=== PATIENT | female | born 1990 | race Caucasian/White ===

== ENCOUNTER 2017-01-07 05:45 | Inpatient (IN) | payer BC ==
[2017-01-07] MEDS ORDERED: OXYTOCIN 10 UNIT/ML 1 ML VIAL IM PRN (06:13)
[2017-01-07] MEDS ORDERED: METHYLERGONOVINE 0.2 MG/ML 1 ML AMP IM PRN (06:13)
[2017-01-07] MEDS ORDERED: TERBUTALINE 1 MG/ML VIAL SQ PRN (06:13)
[2017-01-07] MEDS ORDERED: LIDOCAINE 1% (PF) 10 MG/ML (30 ML SDV) SQ PRN (06:13)
[2017-01-07] MEDS ORDERED: CARBOPROST TROMETHAMINE 250 MCG/ML 1 ML AMP IM PRN (06:13)
[2017-01-07] MEDS ORDERED: OXYTOCIN 30 UNITS/500 ML NS 30 UNIT in SALINE 1 500ML.BAG IV SCH (06:15)
[2017-01-07 06:52] VITALS: BMI 39.1
[2017-01-07 07:28] LABS: Basophils # (A) 0.1 k/uL (0-0.2); Basophils % (A) 0 %; CH 31.9; CHCM 34.9; Eosinophils # (A) 0.1 k/uL (0-0.7); Eosinophils % (A) 1 %; HCT 43.7 % (34.0-46.0); HDW 2.46; Luc # (Auto) 0.23; Luc % (Auto) 1; Lymphocytes # (A) 1.4 k/uL (1.0-4.8); Lymphocytes % (A) 8 %; MCH 31.6 pg (25.0-35.0); MCHC 34.4 g/dL (31.0-37.0); MCV 91.9 fL (80.0-100.0); Monocytes # (A) 0.6 k/uL (0-1.0); Monocytes % (A) 3 %; Neutrophils % (A) 87 %; RBC 4.75 m/uL (3.80-5.40); RDW 13.7 % (11.5-15.5); WBC 18.4 k/uL (3.8-10.6); WBC (Perox) 18.46
[2017-01-07] MEDS ORDERED: BUTORPHANOL 1 MG/ML 1 ML VIAL IV PRN (07:37)
[2017-01-07] MEDS: LACTATED RINGERS 1,000 ML IV SCH ×4 (07:41→17:01)
[2017-01-07 07:46] LABS: ALT 44 U/L (9-52); AST 28 U/L (14-36); Blood Urea Nitrogen 9 mg/dL (7-17); LDH 541 U/L (313-618); Non-African American GFR(MDRD) >60 (>60 ml/min/1.73 sqM); Uric Acid 5.3 mg/dL (3.7-7.4)
[2017-01-07] MEDS ORDERED: BUPIVACAINE (PF) 0.25% 30 ML VIAL ONE (09:25)
[2017-01-07] MEDS ORDERED: SODIUM CHLORIDE 0.9% 100 ML BAG ONE (09:25)
[2017-01-07] MEDS ORDERED: fentaNYL (PF) 50 MCG/ML 5 ML AMP ONE (09:25)
[2017-01-07] MEDS ORDERED: BUPIVACAINE (PF) 0.25% 25 ML, fentaNYL (PF) 200 MCG in SODIUM CHLORIDE 0.9% 71 ML EPIDURAL ONE (09:45)
--- NOTE | 2017-01-07 10:04 | P.HPOB ---
History of Present Illness H&P Date: 01/07/17 This is a 26-year-old 1 para 0 woman with an estimated due date of 01/01 who presents at 40-5/7 weeks gestation with spontaneous rupture of membranes at approximately 4:45 AM. She did have onset of irregular but painful uterine contractions following this. On admission to labor and delivery triage she was found to have positive rupture of membranes with light meconium staining of the amniotic fluid. She was 2 cm dilated and 80% effaced and the infant in the vertex position. She was therefore admitted. Her has been on relatively uncomplicated. She does have hypothyroidism and is Rh-. She takes Synthroid for hypothyroidism. Laboratory data: Blood type O-, antibody screen negative, rubella immune, VDRL nonreactive, hepatitis B surface antigen negative, HIV negative, group B strep negative. Gestational diabetes screening within normal limits. Past Medical History Past Medical History: Hypertension Additional Past Medical History / Comment(s): Hypothyroid History of Any Multi-Drug Resistant Organisms: None Reported Past Surgical History: No Surgical Hx Reported Past Anesthesia/Blood Transfusion Reactions: No Reported Reaction Past Psychological History: No Psychological Hx Reported Smoking Status: Never smoker Medications and Allergies Home Medications Medication Instructions Recorded Confirmed Type Levothyroxine Sodium [Synthroid] 75 mcg PO DAILY 12/31/16 01/07/17 History No.77/Iron Asp Gly/FA 1 each PO DAILY 12/31/16 01/07/17 History [Prenate Star Tablet] Allergies Allergy/AdvReac Type Severity Reaction Status Date / Time Penicillins AdvReac Unknown Verified 01/07/17 08:38 Exam - Vital Signs Vital signs: Vital Signs Temp Pulse Resp BP 01/07/17 06:04 96.7 F L 94 18 150/96 Intake and Output 01/06/17 01/07/17 01/07/17 22:59 06:59 14:59 Other: Weight 103.419 kg Upon my initial evaluation she is comfortable with the recent epidural placement. Targeted physical exam is performed. The abdomen is gravid, soft and nontender. There is no right upper abdominal pain. On pelvic examination the cervix is 3 cm dilated, 90% effaced, vertex in the -1 station and occiput transverse. The she has 1+ bilateral lower extremity edema. heart tones are reassuring by external monitoring and she is jeremy every 2-4 minutes. Results Result Diagrams: 01/07/17 07:10 01/07/17 07:10 Abnormal Lab Results - Last 24 Hours (Table) 01/07/17 Range/Units 07:10 WBC 18.4 H (3.8-10.6) k/uL Neutrophils # 16.0 H (1.3-7.7) k/uL Assessment and Plan (1) Meconium in amniotic fluid Status: Acute (2) Spontaneous onset of labor Status: Acute (3) Spontaneous rupture of membranes Status: Acute (4) Rh negative, maternal Status: Acute (5) Hypothyroid Status: Acute Plan: This is a 26-year-old 1 para 0 woman who presents at 40-5/7 weeks gestation with spontaneous rupture of membranes, light meconium-stained fluid. Her initial blood pressures were elevated however they have come down into the normal range. Laboratory data for possible preeclampsia was done, reviewed and is normal. status is currently reassuring by external monitoring. She is group B strep negative and Rh-. Pitocin augmentation as necessary based on labor pattern.
[2017-01-07] MEDS ORDERED: diphenhydrAMINE 50 MG CAP PO PRN (20:29)
[2017-01-07] MEDS ORDERED: BENZOCAINE/MENTHOL SPRAY 1 GM/SPRAY AEROSOL TOPICAL PRN (20:29)
[2017-01-07] MEDS ORDERED: ACETAMINOPHEN TAB 325 MG TAB PO PRN (20:29)
[2017-01-07] MEDS ORDERED: HYDROCORTISONE 2.5% RECTAL CREAM 30 GM TUBE RECTAL PRN (20:29)
[2017-01-07] MEDS ORDERED: Acetaminophen-Codeine 300-30mg TAB PO PRN (20:29)
[2017-01-07] MEDS ORDERED: diphenhydrAMINE 50 MG/ML 1 ML VIAL IVP PRN ×2 (20:29)
[2017-01-07] MEDS ORDERED: diphenhydrAMINE 25 MG CAP PO PRN (20:29)
[2017-01-07] MEDS ORDERED: ZOLPIDEM 5 MG TAB PO PRN (20:29)
[2017-01-07] MEDS ORDERED: WITCH HAZEL 1 EACH MED..PAD TOPICAL PRN (20:29)
[2017-01-07] MEDS ORDERED: LANOLIN CREAM 5 GM TUBE TOPICAL PRN (20:29)
[2017-01-07] MEDS ORDERED: SIMETHICONE 80 MG CHEWABLE PO PRN (20:29)
--- NOTE | 2017-01-07 20:29 | P.PROBDLV ---
Vaginal Delivery Note - . Vaginal Delivery Note: Findings: Female in the left occiput anterior position with nuchal cord 1. Apgars of 9 at 1 minute and 9 at 5 minutes weighing 7 lbs. 15 oz., 3605 g. Second-degree perineal laceration. Terminal meconium. Calcified, meconium- stained placenta. EBL 300 mL's. Delivery summary: This is a 1 para 0 who is admitted at 40-5/7 weeks gestation with spontaneous rupture of membranes at 445 in active labor. On admission she was 2 cm dilated. She progressed to 3 cm and did receive an epidural anesthetic. After the epidural she received Pitocin augmentation. She reached complete cervical dilation by 1930. She commenced pushing with excellent maternal effort. With she was repositioned, prepped and draped in the dorsal modified lithotomy position. The SALES PROMOTION MANAGER was present in the room for findings of meconium-stained fluid. heart tones were reassuring. With additional maternal effort the head delivered from the left occiput anterior position. The nose and mouth were bulb suctioned on the perineum. A nuchal cord 1 was easily reduced. The anterior followed by the posterior shoulders were delivered without difficulty and the rest the was delivered onto the field. The infant was immediately vigorous and crying. The nose and mouth were further bulb suctioned. The infant was placed on the maternal abdomen with the cord was clamped and cut. Apgars were 9 at 1 minute and 9 at 5 minutes and weight was 7 lbs. 15 oz. second-degree perineal laceration was noted and was infused with lidocaine. This was repaired with 3- 0 Vicryl suture. An intact, three-vessel cord placenta that was meconium- stained and calcified was expressed after an approximately 13 minute third stage of labor. There was initial uterine atony that was managed with vigorous bimanual massage, Pitocin and IM Methergine. The uterus then contracted down firmly with no additional bleeding. The vagina was inspected and no further lacerations were noted. Both mother and infant were doing well post delivery in the room.
[2017-01-07] MEDS: IBUPROFEN 600 MG TAB PO PRN (20:49)
[2017-01-08] MEDS: SENNOSIDES-DOCUSATE SODIUM 1 EACH TAB PO SCH ×2 (08:17→20:05)
[2017-01-08] MEDS: IBUPROFEN 600 MG TAB PO PRN ×3 (08:17→19:34)
--- NOTE | 2017-01-08 10:37 | P.PNOBGVD ---
Subjective - Subjective Principal diagnosis: day 1 Interval history: Minimal lochia. Patient reports: Reports appetite normal, Reports voiding normally, Reports pain well controlled, Reports ambulating normally : doing well, nursing well Objective - Latest Vital Signs Latest vital signs: Vital Signs Temp Pulse Resp BP 01/08/17 08:00 98.7 F 100 20 130/79 01/08/17 04:00 98.1 F 77 16 145/84 01/08/17 00:00 98.1 F 84 16 137/75 01/07/17 22:30 97.3 F L 117 H 16 151/82 01/07/17 22:00 118 H 16 140/76 01/07/17 21:30 120 H 16 149/81 01/07/17 21:15 121 H 16 141/75 01/07/17 21:00 114 H 16 133/68 01/07/17 20:45 121 H 16 121/67 01/07/17 20:30 99.9 F H 136 H 16 131/70 Intake and Output 01/07/17 01/08/17 01/08/17 22:59 06:59 14:59 Intake Total 10.3 240 Balance 10.3 240 Intake: Intake, IV Titration 10.3 Amount Oxytocin 30 Units/500 ml 10.3 Ns 30 unit In Saline 1 500ml.bag @ 1 MILLIUNIT/ MIN 1 mls/hr IV .Q24H EVAN Rx#:[id number] Oral 240 Other: # Voids 1 1 - Exam Extremities: Present: edema Abdomen: Present: normal appearance, soft Uterus: Present: normal, firm Assessment and Plan (1) Meconium in amniotic fluid Current Visit: Yes Status: Acute Code(s): P96.83 - MECONIUM STAINING SNOMED Code(s): 8209118 (2) Spontaneous onset of labor Current Visit: Yes Status: Acute Code(s): VCF9681 - SNOMED Code(s): 92494236 (3) Spontaneous rupture of membranes Current Visit: Yes Status: Acute Code(s): CAW6970 - SNOMED Code(s): 867711001 (4) Rh negative, maternal Current Visit: Yes Status: Acute Code(s): O09.899 - SUPERVISION OF OTHER HIGH RISK PREGNANCIES, UNSP TRIMESTER SNOMED Code(s): 881198839 (5) Hypothyroid Current Visit: Yes Status: Acute Code(s): E03.9 - HYPOTHYROIDISM, UNSPECIFIED SNOMED Code(s): 87217387 (6) Normal spontaneous vaginal delivery Narrative/Plan: day #1 status post normal spontaneous vaginal delivery. Recovering well. Anticipate discharge home tomorrow. Current Visit: Yes Status: Acute Code(s): O80 - ENCOUNTER FOR FULL-TERM UNCOMPLICATED DELIVERY SNOMED Code(s): 74238415 (7) Nuchal cord Current Visit: Yes Status: Acute Code(s): O69.82X0 - LABOR AND DEL COMP BY [facility] CORD ENTANGLE, W/O COMPRSN, UNSP SNOMED Code(s): 081517489 (8) Perineal laceration with delivery, second degree Current Visit: Yes Status: Acute Code(s): O70.1 - SECOND DEGREE PERINEAL LACERATION DURING DELIVERY SNOMED Code(s): 9030027 (9) Post-dates Current Visit: Yes Status: Acute Code(s): O48.0 - POST-TERM SNOMED Code(s): 37640377
[2017-01-08] MEDS: SENNA LEAF EXTRACT SYRUP 528 MG/15 ML CUP PO SCH ×2 (14:03→20:05)
[2017-01-08] MEDS ORDERED: Rhogam IMMUNE GLOBULIN 1,500 UNIT/1 ML IM ONE (16:49)
[2017-01-09] MEDS: IBUPROFEN 600 MG TAB PO PRN ×2 (03:23→12:06)
[2017-01-09] MEDS: SENNA LEAF EXTRACT SYRUP 528 MG/15 ML CUP PO SCH (08:30)
[2017-01-09] MEDS: SENNOSIDES-DOCUSATE SODIUM 1 EACH TAB PO SCH (08:30)
[2017-01-09 08:43] VITALS: BP 126/75; PULSE 81; RESP 17; TEMP 97.3
--- NOTE | 2017-01-09 13:31 | P.DS ---
Providers Date of admission: 01/07/17 05:45 Expected date of discharge: 01/09/17 Attending physician: Renetta Kelly Primary care physician: Stated None Hospital Course: This is a 26-year-old white female 1 para 0 EDC 01/01/2017 at 40-5/7 weeks' gestation. was essentially unremarkable, group B strep cultures negative, blood type O-, rubella status immune. Please see dictated history and physical for details. Patient was admitted, went through active labor with meconium-stained fluid. Requested and received an epidural. She went on to deliver a liveborn female with scores of 9 and 9 at one and 5 minutes respectively. weighed 7 lbs. 15 oz. or 11/21/2004 grams. Estimated blood loss 300 mL, please see dictated delivery note for details. Patient has done well in the period. is also doing well and has been discharged home. Patient is voiding, ambulating, passing flatus and breast-feeding without difficulty. Vital signs are stable and she has remained afebrile. Fundus is firm and in the midline, symmetric and 18 week size. Extremities are negative for edema. Breasts are not engorged. Patient is therefore being discharged home in very good condition. She will follow-up with me in the office in 6 weeks. I have reminded her no intercourse , tampons or douching. She and her are contemplating her options for contraception and we will discuss this further in the office. Infant will follow-up with biofuels plant manager as recommended. [id number] Motrin products, ibuprofen pills, 200 mg, 3 every 6 hours as needed for pain. Continue vitamin daily. I have given her prescription for a double electric breast pump. Issues, difficulties or concerns. Patient Condition at Discharge: Good Plan - Discharge Summary Discharge Medication List Levothyroxine Sodium [Synthroid] 75 mcg PO DAILY 12/31/16 [History] No.77/Iron Asp Gly/FA [Prenate Star Tablet] 1 each PO DAILY 12/31/16 [ History] Follow up Appointment(s)/Referral(s): Renetta Kelly MD [STAFF PHYSICIAN] - 6 Weeks Discharge Disposition: HOME SELF-CARE
== END 2017-01-09 14:00 | disposition home or self-care (01) | DRG 774 ==
LOC: 4FBP 05:45
PROVIDERS: ADMIT Obstetrics & Gynecology; ATTEND Obstetrics & Gynecology
PROC: 10E0XZZ Delivery of Products of Conception, External Approach (ICD-10-PCS; principal; 2017-01-07)
PROC: 00HU33Z Insertion of Infusion Device into Spinal Canal, Percutaneous Approach (ICD-10-PCS; 2017-01-07)
PROC: 3E0R3CZ (ICD-10-PCS; 2017-01-07)
PROC: 3E0234Z Introduction of Serum, Toxoid and Vaccine into Muscle, Percutaneous Approach (ICD-10-PCS; 2017-01-08)
DX: O77.0 Labor and delivery complicated by meconium in amniotic fluid (principal); O10.02 Pre-existing essential hypertension complicating childbirth; Z68.39 Body mass index [BMI] 39.0-39.9, adult; E03.9 Hypothyroidism, unspecified; O69.81X0 Labor and delivery complicated by cord around neck, without compression, not applicable or unspecified; O62.2 Other uterine inertia; O26.893 Other specified pregnancy related conditions, third trimester; O70.1 Second degree perineal laceration during delivery; Z67.41 Type O blood, Rh negative; Z37.0 Single live birth; Z3A.40 40 weeks gestation of pregnancy; O99.284 Endocrine, nutritional and metabolic diseases complicating childbirth; O48.0 Post-term pregnancy; O99.213 Obesity complicating pregnancy, third trimester; Z79.899 Other long term (current) drug therapy
CPT/HCPCS: 82565; 83615; 84450; 84460; 84520; 84550; 85025; 88307

== ENCOUNTER 2019-11-19 06:00 | Inpatient (IN) | payer OTHER ==
[2019-11-19] MEDS ORDERED: CARBOPROST TROMETHAMINE 250 MCG/ML 1 ML AMP IM PRN (06:14)
[2019-11-19] MEDS ORDERED: OXYTOCIN 10 UNIT/ML 1 ML VIAL IM PRN (06:14)
[2019-11-19] MEDS ORDERED: METHYLERGONOVINE 0.2 MG/ML 1 ML AMP IM PRN (06:14)
[2019-11-19] MEDS ORDERED: TERBUTALINE 1 MG/ML VIAL SQ PRN (06:14)
[2019-11-19] MEDS ORDERED: LIDOCAINE 0.5% (PF) 5 MG/ML (50 ML SDV) SQ PRN (06:14)
[2019-11-19] MEDS ORDERED: OXYTOCIN 30 UNITS/500 ML NS 30 UNIT in SALINE 1 500ML.BAG IV SCH (06:15)
[2019-11-19] MEDS ORDERED: LACTATED RINGERS 1,000 ML IV SCH (06:15)
[2019-11-19] MEDS: LACTATED RINGERS 1,000 ML IV SCH ×2 (06:15→16:07)
[2019-11-19 06:25] LABS: Basophils % (A) 0 %; Eosinophils # (A) 0.3 k/uL (0-0.7); Eosinophils % (A) 2 %; HCT 41.9 % (34.0-46.0); HGB 13.9 gm/dL (11.4-16.0); Lymphocytes % (A) 15 %; MCH 30.4 pg (25.0-35.0); MCHC 33.1 g/dL (31.0-37.0); MCV 91.9 fL (80.0-100.0); Mean Platelet Volume 8.5; Monocytes # (A) 0.7 k/uL (0-1.0); Monocytes % (A) 5 %; Neutrophils # (A) 10.3 k/uL (1.3-7.7); Neutrophils % (A) 76 %; Platelet Count 248 k/uL (150-450); RBC 4.56 m/uL (3.80-5.40); RDW 12.9 % (11.5-15.5); WBC 13.5 k/uL (3.8-10.6)
--- NOTE | 2019-11-19 08:15 | P.HPOB ---
History of Present Illness H&P Date: 11/19/19 Chief Complaint: Here for induction for increased proteinuria This is a 29-year-old white female 2 para 1001 EDC 11/26/2019 at 39 weeks gestation. Patient presents for induction for increased proteinuria as noted by 24-hour urines. Fetus has been active throughout the . She denies vaginal bleeding or fluid leakage. Family history significant for asthma, atrial fibrillation, diabetes, and lung cancer. Social history patient is , she is never been a smoker, she denies alcohol or drug use. Obstetric history vaginal delivery 7 lbs. 15 oz. female infant 2016. Past surgical history wisdom teeth extracted in the past. Past medical history hypothyroidism. Current medications Synthroid 75 MCG's daily, vitamin daily. history initial 24 hour urine revealed almost 600 mg of protein, followed every trimester. Blood type is O-, rubella status immune. VDRL testing, urine culture, hepatitis B surface antigen, HIV testing, thyroid function studies, group B strep cultures all negative. One-hour Glucola 113. On exam she is a pleasant white female who is 5 foot 4 inches, 220 pounds, initial blood pressure 133/86, pulse 108. Gen. physical exam is within normal limits. Extremities reveal trace edema. Reflexes are normal. Cervix is 1-2 cm dilated, soft, 50% effaced, anterior, -2 station, vertex. Artificial amniorrhe xis reveals clear fluid. heart rate is consistent with reactive NST. Uterine contractions are mild, occurring approximately 6 minutes apart. Impression: 39 week intrauterine , chronic proteinuria, history of PIH. Here for induction, all signs reassuring. Plan: Continue close maternal and surveillance. Oxytocin per hospital protocol. Analgesic options have been reviewed with the patient. Anticipate normal spontaneous vaginal delivery. Review of Systems Constitutional: Reports as per HPI Past Medical History Past Medical History: Hypertension Additional Past Medical History / Comment(s): Hypothyroid History of Any Multi-Drug Resistant Organisms: None Reported Past Surgical History: No Surgical Hx Reported Past Anesthesia/Blood Transfusion Reactions: No Reported Reaction Past Psychological History: No Psychological Hx Reported Smoking Status: Never smoker Past Alcohol Use History: None Reported Past Drug Use History: None Reported - Past Family History Mother Family Medical History: Asthma Medications and Allergies Home Medications Medication Instructions Recorded Confirmed Type Levothyroxine Sodium [Synthroid] 75 mcg PO DAILY 12/31/16 11/19/19 History No.77/Iron Asp Gly/FA 1 each PO DAILY 12/31/16 11/19/19 History [Prenate Star Tablet] Allergies Allergy/AdvReac Type Severity Reaction Status Date / Time Penicillins AdvReac Unknown Verified 11/19/19 06:05 Exam Vital Signs Temp Pulse Resp BP Pulse Ox 11/19/19 06:10 96.5 F L 108 H 16 133/86 98 Intake and Output 11/18/19 11/19/19 11/19/19 22:59 06:59 14:59 Other: Weight 99.79 kg See dictation under HPI please Results Result Diagrams: 11/19/19 06:15 Abnormal Lab Results - Last 24 Hours (Table) 11/19/19 Range/Units 06:15 WBC 13.5 H (3.8-10.6) k/uL Neutrophils # 10.3 H (1.3-7.7) k/uL Assessment and Plan Assessment: 39 week intrauterine , elevated proteinuria with history of PIH. All signs reassuring. Plan: Oxytocin per hospital protocol. Close maternal and surveillance. Antici melendez normal spontaneous vaginal delivery. Time with Patient: Less than 30
[2019-11-19] MEDS ORDERED: fentaNYL (PF) 50 MCG/ML 5 ML AMP ONE (11:59)
[2019-11-19] MEDS ORDERED: SODIUM CHLORIDE 0.9% 100 ML BAG ONE (11:59)
[2019-11-19] MEDS ORDERED: ROPIVACAINE 5MG/ML 20ML VIAL ONE (11:59)
[2019-11-19] MEDS ORDERED: ROPIVACAINE 100 MG, fentaNYL (PF) 200 MCG in SODIUM CHLORIDE 0.9% 76 ML EPIDURAL ONE (13:09)
[2019-11-19] MEDS ORDERED: WITCH HAZEL 1 EACH MED..PAD TOPICAL PRN (17:53)
[2019-11-19] MEDS ORDERED: diphenhydrAMINE 50 MG/ML 1 ML VIAL IVP PRN ×2 (17:53)
[2019-11-19] MEDS ORDERED: HYDROCORTISONE 2.5% RECTAL CREAM 30 GM TUBE RECTAL PRN (17:53)
[2019-11-19] MEDS ORDERED: SIMETHICONE 80 MG CHEWABLE PO PRN (17:53)
[2019-11-19] MEDS ORDERED: ZOLPIDEM 5 MG TAB PO PRN (17:53)
[2019-11-19] MEDS ORDERED: diphenhydrAMINE 25 MG CAP PO PRN (17:53)
[2019-11-19] MEDS ORDERED: diphenhydrAMINE 50 MG CAP PO PRN (17:53)
[2019-11-19] MEDS ORDERED: LANOLIN CREAM 5 GM TUBE TOPICAL PRN (17:53)
[2019-11-19] MEDS ORDERED: diphenhydrAMINE ELIXIR 25 MG/10 ML CUP PO PRN (17:53)
[2019-11-19] MEDS ORDERED: ACETAMINOPHEN TAB 325 MG TAB PO PRN (17:53)
[2019-11-19] MEDS ORDERED: BENZOCAINE/MENTHOL SPRAY 1 GM/SPRAY AEROSOL TOPICAL PRN (17:53)
--- NOTE | 2019-11-19 17:53 | P.PROBDLV ---
Vaginal Delivery Note - . Vaginal Delivery Note: This is a 29-year-old white female 2 para 1001 EDC 11/26/2019 at 39 weeks gestation. Patient presented earlier this morning for Induction of labor, for elevated proteinuria noted on multiple 24-hour urines specimens. is otherwise unremarkable, blood pressure on admission 133/86. Blood type O-, rubella status immune, group B strep cultures negative. Please see dictated history and physical for details. Patient progressed well through the first stage of labor. Epidural was requested and placed per her request. She progressed well and became completely dilated at 1728 hrs. She began the second stage of labor at that time. Perineal body was prepped and draped in usual sterile fashion. With excellent maternal expulsive efforts the head quickly delivered occiput anterior and restituted accordingly. There was a nuchal cord 1 that was reduced. The left or anterior shoulder was gently and easily delivered from underneath the pubic symphysis at which time the oropharynx, nasopharynx, and external nares were all bulb suctioned on the perineal body. The patient officially delivered a liveborn male at 1738 hrs. Umbilical cord was doubly clamped and ligated, he was handed to waiting nurses for evaluation where scores of 8 and 9 at one and 5 minutes respectively were given. Placenta delivered spontaneously, it was inspected and noted to be intact with trivascular cord at 1741 hrs. Uterus is then massaged. Careful inspection of the cervix, vagina, perineum, periurethral areas reveals no lacerations and no defects. Estimated blood loss 250 mL's. Fundus is firm and in the midline, symmetric and 18 week size upon completion of delivery. Infant's weight was 7 lbs. 7 oz. or 3380 g. Patient and her are requesting circumcision further infant son.
[2019-11-19] MEDS ORDERED: OXYTOCIN 20 UNITS/1000 ML NS 1,000 ML IV SCH (18:00)
[2019-11-19] MEDS: SENNOSIDES-DOCUSATE SODIUM 1 EACH TAB PO SCH (21:03)
[2019-11-19] MEDS: IBUPROFEN 600 MG TAB PO PRN (22:08)
[2019-11-20] MEDS: IBUPROFEN 600 MG TAB PO PRN ×3 (04:54→21:29)
--- NOTE | 2019-11-20 08:31 | P.DS ---
Providers Date of admission: 11/19/19 06:00 Expected date of discharge: 11/20/19 Attending physician: Renetta Kelly Primary care physician: Marily Tyson - Discharge Diagnosis(es) (1) Term Current Visit: Yes Status: Acute (2) Proteinuria Current Visit: Yes Status: Acute (3) Normal spontaneous vaginal delivery Current Visit: No Status: Acute (4) Rh negative, maternal Current Visit: No Status: Acute Hospital Course: This pleasant 29-year-old 2 para 1 at 39-0/7 weeks with an estimated due date of 11/26/2019. Patient presented for induction secondary to increased proteinuria throughout the . Patient has a history of PIH in addition. Patient had otherwise uncomplicated care. For complete details on this patient please see the dictated history and physical. Patient was admitted to labor and delivery and Pitocin induction of labor was begun per hospital protocol. Patient made progress through first stage of labor eventually requesting an epidural. Epidural was placed without difficulty by the anesthesia department. She progressed to complete began pushing and had a normal spontaneous vaginal delivery of a viable male infant, weight of 7 lbs. 7 oz. at 1738. No lacerations were sustained during delivery. Patient's course has been uneventful. On this day #1 she is ambulating and voiding without difficulty. She is tolerating a regular diet without nausea or vomiting. She is breast-feeding without difficulty, her lochia is minimal. She denies concerns and would like discharge home at 24 hours. Patient Condition at Discharge: Good Plan - Discharge Summary New Discharge Prescriptions: No Action Levothyroxine Sodium [Synthroid] 75 mcg PO DAILY No.77/Iron Asp Gly/FA [Prenate Star Tablet] 1 each PO DAILY Discharge Medication List Levothyroxine Sodium [Synthroid] 75 mcg PO DAILY 12/31/16 [History] No.77/Iron Asp Gly/FA [Prenate Star Tablet] 1 each PO DAILY 12/31/16 [History] Follow up Appointment(s)/Referral(s): Renetta Kelly MD [STAFF PHYSICIAN] - 1 Week Patient Instructions/Handouts: Vaginal Delivery (DC), Vaginal Delivery (GEN) Discharge Disposition: HOME SELF-CARE
[2019-11-20] MEDS ORDERED: Rhogam IMMUNE GLOBULIN 1,500 UNIT/1 ML IM ONE (10:44)
[2019-11-20] MEDS: SENNOSIDES-DOCUSATE SODIUM 1 EACH TAB PO SCH ×2 (10:48→21:29)
[2019-11-21] MEDS: SENNOSIDES-DOCUSATE SODIUM 1 EACH TAB PO SCH (07:57)
[2019-11-21 09:42] VITALS: RESP 16
[2019-11-21] MEDS: IBUPROFEN 600 MG TAB PO PRN ×2 (10:33→17:00)
[2019-11-21 16:52] VITALS: BP 123/85; PULSE 63; TEMP 98
== END 2019-11-21 18:55 | disposition home or self-care (01) | DRG 807 ==
LOC: 4FBP 06:00
PROVIDERS: ADMIT Obstetrics & Gynecology; ATTEND Obstetrics & Gynecology
PROC: 00HU33Z Insertion of Infusion Device into Spinal Canal, Percutaneous Approach (ICD-10-PCS; principal; 2019-11-19)
PROC: 3E033VJ Introduction of Other Hormone into Peripheral Vein, Percutaneous Approach (ICD-10-PCS; principal; 2019-11-19)
PROC: 10E0XZZ Delivery of Products of Conception, External Approach (ICD-10-PCS; principal; 2019-11-19)
PROC: 3E0R3BZ Introduction of Anesthetic Agent into Spinal Canal, Percutaneous Approach (ICD-10-PCS; principal; 2019-11-19)
DX: O12.14 Gestational proteinuria, complicating childbirth (principal); Z37.0 Single live birth; O69.81X0 Labor and delivery complicated by cord around neck, without compression, not applicable or unspecified; O99.284 Endocrine, nutritional and metabolic diseases complicating childbirth; E03.9 Hypothyroidism, unspecified; Z3A.39 39 weeks gestation of pregnancy; Z79.890 Hormone replacement therapy; Z88.0 Allergy status to penicillin; Z87.59 Personal history of other complications of pregnancy, childbirth and the puerperium; Z80.1 Family history of malignant neoplasm of trachea, bronchus and lung; Z82.5 Family history of asthma and other chronic lower respiratory diseases; Z83.3 Family history of diabetes mellitus; Z82.49 Family history of ischemic heart disease and other diseases of the circulatory system
CPT/HCPCS: 85025; 85461; 86850; 86900; 86901

== ENCOUNTER 2020-08-10 06:24 | Day surgery (SDC) | payer OTHER ==
[2020-08-05 16:00] VITALS: BMI 32.8
[~2020-08-10 06:24] MED LIST: ACETAMINOPHEN TAB 500 MG TAB PO ONE; DEXAMETHASONE SOD PHOSPHATE 4 MG/ML 1 ML VIAL IV ONE; HEPARIN SODIUM,PORCINE 5,000 UNIT/ML 1 ML VIAL SQ ONE; HYDROmorphone 0.5 MG/0.5 ML SYRINGE IVP PRN; ONDANSETRON 4 MG/2 ML VIAL IVP ONE
[2020-08-10] MEDS: LACTATED RINGERS 1,000 ML IV SCH ×2 (06:47→09:35)
[2020-08-10] MEDS ORDERED: LIDOCAINE 1% (10MG/ML) FOR IV START INTRADERMA ONE (06:48)
[2020-08-10] MEDS ORDERED: SCOPOLAMINE 1.5MG/72HR PATCH TRANSDERM ONE (06:49)
[2020-08-10] MEDS ORDERED: NEOSTIGMINE 1 MG/ML 10 ML VIAL ONE (07:45)
[2020-08-10] MEDS ORDERED: ROCURONIUM 10 MG/ML (10 ML VIAL) IV ONE (07:45)
[2020-08-10] MEDS ORDERED: fentaNYL (PF) 50 MCG/ML 2 ML AMP ONE (07:45)
[2020-08-10] MEDS ORDERED: GLYCOPYRROLATE 0.2 MG/ML 2 ML VIAL ONE (07:45)
[2020-08-10] MEDS ORDERED: PROPOFOL 10 MG/ML 20 ML VIAL IV ONE (07:45)
[2020-08-10] MEDS ORDERED: MIDAZOLAM 2 MG/2 ML VIAL ONE (07:45)
[2020-08-10] MEDS ORDERED: SUCCINYLCHOLINE CHLORIDE 100 MG/5 ML SYR IV ONE (07:45)
[2020-08-10] MEDS ORDERED: KETOROLAC 15 MG/ML 1 ML VIAL ONE (07:45)
[2020-08-10] MEDS ORDERED: LIDOCAINE 1% INJ 10MG/ML (20 ML MDV) ONE (07:45)
[2020-08-10] MEDS ORDERED: HYDROmorphone (PF) 1 MG/ML ONE (07:45)
[2020-08-10] MEDS ORDERED: BUPIVACAINE (PF) 0.25% 30 ML VIAL SQ ONE (08:03)
[2020-08-10 08:37] VITALS: RESP 16; TEMP 97.7
--- NOTE | 2020-08-10 08:44 | P.OP ---
Date of Procedure: 08/10/20 Preoperative Diagnosis: Cholecystitis Cholelithiasis Postoperative Diagnosis: Cholecystitis Cholelithiasis Procedure(s) Performed: Laparoscopic cholecystectomy Anesthesia: BRENDAN Surgeon: Heber Schreiber Pathology: other (Gallbladder) Condition: stable Disposition: PACU Description of Procedure: The patient was placed on the operating table. The patient received a general endotracheal tube anesthesia. The patients abdomen was prepped and draped in the usual sterile fashion. Through an infraumbilical stab incision, the fascia of the anterior abdominal wall was grasped with a pair of Kochers and then the Veress needle was placed in the peritoneal cavity. Position of the Veress needle was confirmed with positive drop test. The abdomen was then insufflated. After adequate insufflation, the 10 mm trocar was placed in the peritoneal cavity. Following this the laparoscope was placed in the peritoneal cavity. The patient was placed in the head-up, right side up position and then a 5 mm trocar was placed in the right lateral and right subcostal position under direct visualization. A 8 mm trocar was placed in the epigastric position. The gallbladder was grasped in the fundus and infundibulum. Traction on the gallbladder was placed in the lateral and the cephalad positions. The triangle of Calot was visualized.. The cystic duct was bluntly dissected until the union of the cystic duct and common bile duct was seen. A critical view of safety was achieved. The cystic duct was then divided and sealed with the Harmonic scissors. A PDS Endoloop was then placed throughout the cystic duct stump. The cystic artery divided and sealed with the Harmonic scissors. The gallbladder was then removed from the liver bed using Harmonic scissors. The gallbladder was then extracted through the epigastric port site. Operative field was checked for any bleeding spots and Harmonic scissors was used to coagulate the liver bed. The abdomen was irrigated. The trocars were removed. The skin was closed using interrupted 3-0 Vicryl suture. Dermabond dressing were applied. The patient tolerated the procedure well.
[2020-08-10] MEDS ORDERED: ONDANSETRON 4 MG/2 ML VIAL IVP ONE (09:20)
[2020-08-10] MEDS ORDERED: ONDANSETRON 4 MG/2 ML VIAL ONE (09:22)
[2020-08-10 09:37] VITALS: BP 124/71; PULSE 51
== END 2020-08-10 10:07 | disposition home or self-care (01) ==
LOC: OR 06:24
PROVIDERS: ATTEND Surgery
DX: K81.2 Acute cholecystitis with chronic cholecystitis (principal); E07.9 Disorder of thyroid, unspecified; Z88.0 Allergy status to penicillin; Z79.3 Long term (current) use of hormonal contraceptives; Z79.890 Hormone replacement therapy; Z98.890 Other specified postprocedural states; Z84.89 Family history of other specified conditions
CPT/HCPCS: 81025; 88304; 47562; J2250; J1644; J1100; J2710; J0690; J2405; J2001; J3010; J1170; J1885; J0330; J2704

== ENCOUNTER 2023-03-29 16:57 | Inpatient (IN) | payer BC ==
[2023-03-29] MEDS ORDERED: miSOPROStoL 200 MCG TAB PO PRN (17:13)
[2023-03-29] MEDS ORDERED: TRANEXAMIC 1,000 MG/100ML-NACL 1,000 MG in EMPTY BAG 1 BAG IV PRN (17:13)
[2023-03-29] MEDS ORDERED: CARBOPROST TROMETHAMINE 250 MCG/ML 1 ML AMP IM PRN (17:13)
[2023-03-29] MEDS ORDERED: TERBUTALINE 1 MG/ML VIAL SQ PRN (17:13)
[2023-03-29] MEDS ORDERED: LIDOCAINE 0.5% (PF) 5 MG/ML (50 ML SDV) SQ PRN (17:13)
[2023-03-29] MEDS ORDERED: METHYLERGONOVINE 0.2 MG/ML 1 ML AMP IM PRN (17:13)
[2023-03-29] MEDS ORDERED: OXYTOCIN 10 UNIT/ML 1 ML VIAL IM PRN (17:13)
[2023-03-29] MEDS ORDERED: DINOPROSTONE 10 MG INSERT.ER VAGINAL ONE (17:41)
[2023-03-29 17:45] LABS: Basophils % (A) 0 %; Eosinophils # (A) 0.1 k/uL (0-0.7); Eosinophils % (A) 1 %; HCT 38.5 % (34.0-46.0); HGB 13.3 gm/dL (11.4-16.0); Lymphocytes # (A) 1.6 k/uL (1.0-4.8); Lymphocytes % (A) 13 %; MCH 31.3 pg (25.0-35.0); MCHC 34.5 g/dL (31.0-37.0); MCV 90.9 fL (80.0-100.0); Mean Platelet Volume 8.5; Monocytes # (A) 0.4 k/uL (0-1.0); Monocytes % (A) 3 %; Neutrophils # (A) 10.5 k/uL (1.3-7.7); Neutrophils % (A) 83 %; Platelet Count 281 k/uL (150-450); RBC 4.23 m/uL (3.80-5.40); RDW 13.4 % (11.5-15.5); WBC 12.7 k/uL (3.8-10.6)
[2023-03-29] MEDS: LACTATED RINGERS 1,000 ML IV SCH (17:49)
--- NOTE | 2023-03-29 18:28 | P.HPOB ---
History of Present Illness H&P Date: 03/29/23 Chief Complaint: Elective induction of labor Ms. Herbert is a 33 year old at 38 weeks and 6 days with EDC of 04/06/2023 (by 9 week US) presenting to labor and delivery for medical induction of labor for gestational hypertension. The has been complicated by Rh negative status, for which the patient received Rhogam at 28 weeks gestation. On baseline pre-eclampsia labs at the beginning of the patient was noted to have baseline proteinuria with a 24 hour urine protein of 299.5. Obstetric history: The patient had proteinuria in her prior for which she was induced. She has had 2 full term vaginal deliveries that were otherwise uncomplicated. Largest baby was 7#15oz. Maternal work-up: Blood type O positive, antibody negative, rubella immune, VDRL non-reactive, HBsAg negative, HIV negative, gonorrhea negative, chlamydia negative, 1 hour GTT 108, GBS negative. Past Medical History Past Medical History: Thyroid Disorder Additional Past Medical History / Comment(s): Hypothyroid, had high BP during first , but not 2nd, RUQ pain mostly @HS, hx. elevated ketones during -sees dr. Mcmahan for History of Any Multi-Drug Resistant Organisms: None Reported Past Surgical History: No Surgical Hx Reported, Cholecystectomy Additional Past Surgical History / Comment(s): wisdom teeth removed Past Anesthesia/Blood Transfusion Reactions: No Reported Reaction Past Psychological History: No Psychological Hx Reported Smoking Status: Never smoker Past Alcohol Use History: None Reported Past Drug Use History: None Reported - Past Family History Mother Family Medical History: Asthma Medications and Allergies Home Medications Medication Instructions Recorded Confirmed Type Levothyroxine Sodium [Synthroid] 75 mcg PO DAILY 12/31/16 03/29/23 History Aspirin 81 mg PO DAILY 03/29/23 03/29/23 History Vit No.179/Iron/Folic 1 tab PO DAILY 03/29/23 03/29/23 History [ Tablet] Allergies Allergy/AdvReac Type Severity Reaction Status Date / Time Penicillins AdvReac Unknown Verified 03/29/23 17:10 Exam Vital Signs Temp Pulse Resp BP Pulse Ox 03/29/23 17:09 97.0 F L 96 16 142/88 100 Intake and Output 03/29/23 03/29/23 03/29/23 06:59 14:59 22:59 Other: Weight 103.873 kg Focused physical exam is performed. This is a healthy-appearing in no apparent distress. Abdomen is gravid and non-tender. Cervical exam is fingertip dilated, 50% effaced, and -3 station. heart tones are reactive and reassuring on NST. Results Result Diagrams: 03/29/23 17:35 Abnormal Lab Results - Last 24 Hours (Table) 03/29/23 Range/Units 17:35 WBC 12.7 H (3.8-10.6) k/uL Neutrophils # 10.5 H (1.3-7.7) k/uL Assessment and Plan Assessment: 33 year old at 38 weeks and 5 days being medically induced for gestational hypertension Plan: Admit, NPO, mIVF, will place vaginal cervidil for cervical ripening, PIH labs and urine P:C ordered (baseline urine P:C nearly .299), continuous EFM, close monitoring of patient, IV nubain prn. Time with Patient: Less than 30 (10 minutes)
[2023-03-29] MEDS: OXYTOCIN 30 UNITS/500 ML NS 30 UNIT in SALINE 1 500ML.BAG IV SCH (19:30)
[2023-03-29 20:03] LABS: INR 0.9 (<1.2); Partial Thromboplastin Time 24.8 sec (22.0-30.0); Prothrombin Time 9.7 sec (9.0-12.0)
[2023-03-29 20:14] LABS: ALT 23 U/L (4-34); AST 25 U/L (14-36); African American GFR (CKD) >90 (>60 ml/min/1.73 sqM); Blood Urea Nitrogen 9 mg/dL (7-17); LDH 185 U/L (120-246); Non-African American GFR(CKD) >90 (>60 ml/min/1.73 sqM); Uric Acid 4.5 mg/dL (3.7-7.4)
[2023-03-29] MEDS: NALBUPHINE 10 MG/ML (10 ML MDV) IV PRN (23:24)
[2023-03-30] MEDS: NALBUPHINE 10 MG/ML (10 ML MDV) IV PRN (03:20)
[2023-03-30] MEDS: LACTATED RINGERS 1,000 ML IV SCH ×3 (03:21→09:27)
[2023-03-30] MEDS ORDERED: ROPIVACAINE 5 MG/ML 20 ML AMPULE ONE (09:07)
[2023-03-30] MEDS ORDERED: fentaNYL (PF) 50 MCG/ML 5 ML AMP ONE (09:07)
[2023-03-30] MEDS ORDERED: SODIUM CHLORIDE 0.9% 100 ML BAG ONE (09:07)
--- NOTE | 2023-03-30 16:03 | P.PROBDLV ---
Vaginal Delivery Note - . Vaginal Delivery Note: DATE OF SERVICE: 03/30/2023 PROCEDURE: Normal Vaginal Delivery ATTENDING: Dr. Jessica Aragon MD ESTIMATED BLOOD LOSS: 300 mL FINDINGS: VFI, Apgars 8/8. Weight 7 pounds 9.2 ounces (3435 grams) PROCEDURE: Ms. Herbert is a 33 year old at 38 weeks and 6 days with EDC of 04/06/2023 (by 9 week US) presenting to labor and delivery for medical induction of labor for gestational hypertension. The has been complicated by Rh negative status, for which the patient received Rhogam at 28 weeks gestation. On baseline pre-eclampsia labs at the beginning of the patient was noted to have baseline proteinuria with a 24 hour urine protein of 299.5. Cooks catheter was placed 03/29 evening at approximately 1900 with low dose oxytocin running overnight. Cooks catheter was removed and the patient was dilated to 5 centimeters, 50% effacement, and -3 station. Oxytocin at this point was titrated per hospital protocol. Artifical rupture of membranes was undertaken at 944 this morning revealing clear fluid. The patient received epidural anesthesia per her request. The patient had periods of a Category II heart tracing throughout the active phase of labor with periods of recurrent variable decelerations. These were resolved with position changes. The patient was completely dilated at 1523. A viable female infant was delivered at 1525. The was placed on the maternal abdomen and bulb suctioned. Cord was clamped and cut. The was taken to the incubator by the pediatric team. Placenta was delivered whole with gentle cord traction at 1529. Oxytocin was started to facilitate uterine tone. Uterine fundus was found to be firm and below the umbilicus upon fundal massage. Thorough examination of the cervix, vagina, periurethral area, and perineum revealed no lacerations. The patient is stable and allowed to begin the bonding process.
[2023-03-30] MEDS ORDERED: ACETAMINOPHEN TAB 325 MG TAB PO PRN (16:06)
[2023-03-30] MEDS ORDERED: ZOLPIDEM 5 MG TAB PO PRN (16:06)
[2023-03-30] MEDS ORDERED: BENZOCAINE/MENTHOL SPRAY 1 GM/SPRAY AEROSOL TOPICAL PRN (16:06)
[2023-03-30] MEDS ORDERED: diphenhydrAMINE 50 MG CAP PO PRN (16:06)
[2023-03-30] MEDS ORDERED: SIMETHICONE 80 MG CHEWABLE PO PRN (16:06)
[2023-03-30] MEDS ORDERED: diphenhydrAMINE 50 MG/ML 1 ML VIAL IVP PRN ×2 (16:06)
[2023-03-30] MEDS ORDERED: diphenhydrAMINE 25 MG CAP PO PRN (16:06)
[2023-03-30] MEDS ORDERED: LANOLIN CREAM 5 GM TUBE TOPICAL PRN (16:06)
[2023-03-30] MEDS ORDERED: Rhogam IMMUNE GLOBULIN 1,500 UNIT/1 ML IM ONE (16:06)
[2023-03-30] MEDS ORDERED: HYDROCORTISONE 2.5% RECTAL CREAM 30 GM TUBE RECTAL PRN (16:06)
[2023-03-30] MEDS: OXYTOCIN 30 UNITS/500 ML NS 30 UNIT in SALINE 1 500ML.BAG IV SCH (16:09)
[2023-03-30] MEDS ORDERED: OXYTOCIN 30 UNITS/500 ML NS 30 UNIT in SALINE 1 500ML.BAG IV SCH (16:15)
[2023-03-30] MEDS: IBUPROFEN 600 MG TAB PO PRN (20:51)
[2023-03-30] MEDS: SENNOSIDES-DOCUSATE SODIUM 1 EACH TAB PO SCH (20:51)
[2023-03-31] MEDS: IBUPROFEN 600 MG TAB PO PRN ×2 (04:27→11:35)
[2023-03-31 05:42] LABS: Basophils % (A) 0 %; Eosinophils # (A) 0.3 k/uL (0-0.7); Eosinophils % (A) 2 %; HCT 37.2 % (34.0-46.0); Lymphocytes # (A) 2.7 k/uL (1.0-4.8); Lymphocytes % (A) 16 %; MCH 29.8 pg (25.0-35.0); MCHC 32.2 g/dL (31.0-37.0); MCV 92.5 fL (80.0-100.0); Mean Platelet Volume 8.3; Monocytes # (A) 0.8 k/uL (0-1.0); Monocytes % (A) 5 %; Neutrophils % (A) 77 %; Platelet Count 242 k/uL (150-450); RBC 4.02 m/uL (3.80-5.40); RDW 13.4 % (11.5-15.5); WBC 16.9 k/uL (3.8-10.6)
--- NOTE | 2023-03-31 07:32 | P.PNOBGVD ---
Subjective - Subjective Principal diagnosis: s/p normal vaginal delivery Interval history: The patient is doing well this morning and had no acute events overnight. She has no complaints this morning. She reports minimal lochia, passing flatus, voiding without difficulty, ambulating, and eating/drinking without nausea or vomiting. She is her without difficulty. She denies chest pain, shortness of breathing, fevers, or chills overnight. She denies pain or swelling in the legs. Patient reports: Reports appetite normal, Reports voiding normally, Reports pain well controlled, Reports ambulating normally [place]: doing well, nursing well Objective - Latest Vital Signs Latest vital signs: Vital Signs Temp Pulse Resp BP Pulse Ox 03/31/23 04:30 98.4 F 86 14 95/62 99 03/30/23 23:38 98.2 F 87 12 100/62 97 03/30/23 21:00 98.4 F 87 14 116/76 98 03/30/23 17:40 88 16 123/64 03/30/23 17:05 82 16 120/70 03/30/23 16:40 84 16 120/70 03/30/23 16:25 86 16 126/56 03/30/23 16:10 97.3 F L 84 16 112/64 03/30/23 15:55 88 16 129/61 03/30/23 15:40 95 16 131/76 99 Intake and Output 03/30/23 03/31/23 03/31/23 22:59 06:59 14:59 Intake Total 41.3 Output Total 296 Balance -254.7 Intake: Intake, IV Titration 41.3 Amount Oxytocin 30 Units/500 ml 41.3 Ns 30 unit In Saline 1 500ml.bag @ Per Protocol IV .Q0M [facility] Rx#:[id number] Output: Output, Quantitative 296 Blood Loss Other: # Voids 1 1 - Exam Extremities: Present: normal Abdomen: Present: normal appearance, soft Uterus: Present: normal, firm - Labs Labs: Abnormal Lab Results - Last 24 Hours (Table) 03/31/23 Range/Units 05:01 WBC 16.9 H (3.8-10.6) k/uL Neutrophils # 13.0 H (1.3-7.7) k/uL Assessment and Plan Assessment: 33 year old now PPD#1 s/p normal vagina delivery Plan: Patient meeting all milestones. Will discharge home today.
--- NOTE | 2023-03-31 07:39 | P.DS ---
Providers Date of admission: 03/29/23 16:57 Expected date of discharge: 03/31/23 Attending physician: Jessica Aragon MD Primary care physician: Jessica Aragon MD Hospital Course: Ms. Herbert 33 year old now PPD#1 s/p normal vagina delivery after medical induction at 39 weeks for gestational hypertension. The has been complicated by Rh negative status, for which the patient received Rhogam at 28 weeks gestation. On baseline pre-eclampsia labs at the beginning of the patient was noted to have baseline proteinuria with a 24 hour urine protein of 299.5. Cooks catheter was placed 03/29 evening at approximately 1900 with low dose oxytocin running overnight. Cooks catheter was removed and the patient was dilated to 5 centimeters, 50% effacement, and -3 station. Oxytocin at this point was titrated per hospital protocol. Artifical rupture of membranes was undertaken at 944 this morning revealing clear fluid. The patient received epidural anesthesia per her request. The patient had periods of a Category II heart tracing throughout the active phase of labor with periods of recurrent variable decelerations. These were resolved with position changes. A viable female was delivered at 1525 on 03/30/2023 followed by intact placenta. , blood pressures have been normotensive. The patient is doing well this morning and had no acute events overnight. She has no complaints this morning. She reports minimal lochia, passing flatus, voiding without difficulty, ambulating, and eating/drinking without nausea or vomiting. She denies headache, visual changes, and right upper quadrant pain. doing well at bedside and nursing well. She denies chest pain, shortness of breathing, fevers, or chills overnight. She denies pain or swelling in the legs. restrictions are reviewed with the patient including pelvic rest for 6 weeks. The patient is encouraged to call the office if she experiences any heavy bleeding, foul-smelling discharge, breast complaints, or any if she has any other concerns. She will follow up in the office in 1 week for blood pressure check and then in 6 weeks for appointment. The patient has Motrin and Tylenol at home and does not desire prescriptions for these medications. All questions are answered. Assessment: 33 year old now PPD#1 s/p normal vaginal delivery after medical induction of labor for gHTN Patient Condition at Discharge: Good Plan - Discharge Summary Discharge Rx Participant: No New Discharge Prescriptions: No Action Levothyroxine Sodium [Synthroid] 75 mcg PO DAILY Vit No.179/Iron/Folic [ Tablet] 1 tab PO DAILY Aspirin 81 mg PO DAILY Discharge Medication List Levothyroxine Sodium [Synthroid] 75 mcg PO DAILY 12/31/16 [History] Aspirin 81 mg PO DAILY 03/29/23 [History] Vit No.179/Iron/Folic [ Tablet] 1 tab PO DAILY 03/29/23 [History] Follow up Appointment(s)/Referral(s): Jessica Aragon MD [Primary Care Provider] - 1 Week (blood pressure check) Activity/Diet/Wound Care/Special Instructions: Instructions 1. Do not begin any exercise program for 3 weeks. 2. Do not resume sexual relations for 6 weeks or longer if uncomfortable. 3. You may take tub baths or showers at any time. 4. You may use tampons if desired after 6 weeks. 5. Keep any areas repaired with stitches clean and dry. 6. If you are not nursing, wear a good fitting, supportive bra during the day and limit fluid intake for at least 1 week to prevent breast engorgement. 7. Call the office, , within the next week to make appointment for your 6 week checkup if it has not already been made. 8. Report any of the following occurrences to the doctor promptly: a. Heavy, excessive bleeding b. Chills, fever c. Burning or frequency of urination d. Pain or redness and breasts if nursing Discharge Disposition: HOME SELF-CARE
[2023-03-31] MEDS: SENNOSIDES-DOCUSATE SODIUM 1 EACH TAB PO SCH (08:16)
[2023-03-31 13:22] VITALS: BP 129/86; PULSE 78; RESP 14; TEMP 97.8
== END 2023-03-31 17:10 | disposition home or self-care (01) | DRG 807 ==
LOC: 4FBP 16:57
PROVIDERS: ADMIT Obstetrics & Gynecology; ATTEND Obstetrics & Gynecology
PROC: 10E0XZZ Delivery of Products of Conception, External Approach (ICD-10-PCS; principal; 2023-03-30)
PROC: 10907ZC Drainage of Amniotic Fluid, Therapeutic from Products of Conception, Via Natural or Artificial Opening (ICD-10-PCS; 2023-03-30)
PROC: 3E033VJ Introduction of Other Hormone into Peripheral Vein, Percutaneous Approach (ICD-10-PCS; 2023-03-30)
PROC: 4A1HXCZ Monitoring of Products of Conception, Cardiac Rate, External Approach (ICD-10-PCS; 2023-03-30)
DX: O13.4 Gestational [pregnancy-induced] hypertension without significant proteinuria, complicating childbirth (principal); Z37.0 Single live birth; O26.893 Other specified pregnancy related conditions, third trimester; O76 Abnormality in fetal heart rate and rhythm complicating labor and delivery; O99.284 Endocrine, nutritional and metabolic diseases complicating childbirth; Z3A.38 38 weeks gestation of pregnancy; E03.9 Hypothyroidism, unspecified; Z67.91 Unspecified blood type, Rh negative; Z79.82 Long term (current) use of aspirin; Z79.890 Hormone replacement therapy; Z88.0 Allergy status to penicillin; Z90.49 Acquired absence of other specified parts of digestive tract
CPT/HCPCS: 82565; 83615; 84450; 84460; 84520; 84550; 85025; 85384; 85610; 85730; 86850; 86900; 86901